=== PATIENT | male | born 1970 | race Caucasian/White ===

== ENCOUNTER 2025-06-22 09:45 | Outpatient (CLI) | payer OTHER, SELFPAY | END 2025-06-22 09:46 | disposition home or self-care (01) | PROVIDERS: Visit Provider Family Medicine | DX: Z00.00 Encounter for general adult medical examination without abnormal findings (principal); E78.5 Hyperlipidemia, unspecified | CPT/HCPCS: 80053; 80061 ==

== ENCOUNTER 2025-07-23 08:33 | Outpatient (CLI) | payer OTHER, SELFPAY ==
--- NOTE | 2025-07-23 10:32 | P.ANES_ITS ---
Anesthesia Charges Start Date/Time Anesthesia Start Date: 07/23/25 Anesthesia Start Time: 10:01 Stop Date/Time Anesthesia Stop Date: 07/23/25 Anesthesia Stop Time: 10:30 Coding CPT Codes CPT Codes: VIVIAN LWR INTST NDSC NOS - [id number] ([id number]) P2 - PATIENT W/MILD SYST DISEASE, QK - PREPARATION SUPERVISOR FREEZING 2-4 CNCRNT ANES PROC, QX - INVESTMENT REPRESENTATIVE SVC W/ MD MED DIRECTION
--- NOTE | 2025-07-23 10:32 | W.ANESCHARGE ---
Anesthesia Charges Start Date/Time Anesthesia Start Date: 07/23/25 Anesthesia Start Time: 10:01 Stop Date/Time Anesthesia Stop Date: 07/23/25 Anesthesia Stop Time: 10:30 Coding CPT Codes CPT Codes: VIVIAN LWR INTST NDSC NOS - [id number] ([id number]) P2 - PATIENT W/MILD SYST DISEASE, QK - DAY CAMP UNIT LEADER 2-4 CNCRNT ANES PROC, QX - AVIONICS ELECTRICAL ENGINEER SVC W/ MD MED DIRECTION
--- NOTE | 2025-07-23 11:42 | P.ANES_ITS ---
Anesthesia Charges Start Date/Time Anesthesia Start Date: 07/23/25 Anesthesia Start Time: 10:01 Stop Date/Time Anesthesia Stop Date: 07/23/25 Anesthesia Stop Time: 10:30 Coding CPT Codes CPT Codes: VIVIAN LWR INTST NDSC NOS - [id number] ([id number]) QK - LEVELER HELPER 2-4 CNCRNT VIVIAN PROC, QX - QUALITY PROCESS ENGINEER SVC W/ MD MED DIRECTION, P2 - PATIENT W/MILD SYST DISEASE
--- NOTE | 2025-07-23 11:42 | W.ANESCHARGE ---
Anesthesia Charges Start Date/Time Anesthesia Start Date: 07/23/25 Anesthesia Start Time: 10:01 Stop Date/Time Anesthesia Stop Date: 07/23/25 Anesthesia Stop Time: 10:30 Coding CPT Codes CPT Codes: VIVIAN LWR INTST NDSC NOS - [id number] ([id number]) QK - DEDICATED INTERMODAL TRUCK DRIVER 2-4 CNCRNT VIVIAN PROC, QX - BILL OF MATERIALS CLERK SVC W/ MD MED DIRECTION, P2 - PATIENT W/MILD SYST DISEASE
== END 2025-07-23 08:34 | disposition home or self-care (01) ==
LOC: OP CLINIC 08:35
PROVIDERS: PCP Family Medicine; Visit Provider Surgery
DX: Z12.11 Encounter for screening for malignant neoplasm of colon (principal); D12.2 Benign neoplasm of ascending colon
CPT/HCPCS: 00811; 00812; 45385; 88305; J2704